=== PATIENT | male | born 1940 | race Caucasian/White ===

== ENCOUNTER → 2017-09-07 | Outpatient (CLI) | payer OTHER | LOC: FIMAGING 08:43 | PROVIDERS: ATTEND Internal Medicine | DX: R10.9 Unspecified abdominal pain (principal) ==

== ENCOUNTER → 2017-09-15 | Outpatient (CLI) | payer OTHER | LOC: BMCIMAGING 08:42 | PROVIDERS: ATTEND Internal Medicine | DX: N43.3 Hydrocele, unspecified (principal) ==